=== PATIENT | male | born 1995 | race Caucasian/White ===

== ENCOUNTER 2019-11-14 22:32 | Emergency (ER) | payer MEDICAID ==
[~2019-11-14] VITALS: Ht 175.3 cm; Wt 81.2 kg
[2019-11-14 22:39] VITALS: Ht 175.3 cm; Wt 81.2 kg
[2019-11-15 02:44] VITALS: BP 110/78
== END 2019-11-15 02:44 | disposition home or self-care (01) ==
LOC: ED 22:32
DX: M94.0 Chondrocostal junction syndrome [Tietze] (principal)
CPT/HCPCS: Q0092